=== PATIENT | female | born 1965 | race African-American/Black ===

== ENCOUNTER 2016-10-08 09:37 | Emergency (ER) | payer OTHER ==
--- NOTE | ~2016-10-08 | CR63 ---
[facility] A Service of [facility] RADIOLOGY TEXT RESULTS PATIENT: CLARA LOOMIS LOCATION: [facility] : 63 UNIT #: [id number] AGE: [address]: Melody Macias APRN SEX: F ORDER DR: [id number] [facility] [address] [place], [place] [address] [id number] E MR#: [id number] Acc #: [id number] NAME: CLARA LOOMIS. : 1965 SEX: F STUDY DATE/TIME: 10/08/2016 9:43 UNIT: [facility] ROOM: STUDY DESCRIPTION: CR Chest 2 View Attending Physician: Melody Macias A.P.R.N. Ordering Physician: Ed Dany Barahona M.D. Primary Care Physician: Scott Maldonado M.D. MEDICAL IMAGING REPORT This report is preliminary unless electronic signature is present EXAM 2 views of the chest COMPARISON None INDICATION 51-year-old female with cough, chest congestion and dyspnea for 2 days. FINDINGS Cardiomediastinal silhouette is normal. No evidence of pneumothorax, pleural effusion or acute airspace disease. There are prominent breast shadows on frontal view. Mild multilevel anterior osteophyte formation of the thoracic spine seen primarily at the mid aspect. IMPRESSION No acute radiographic abnormality of the chest. Dictated by... Cordell Burns M.D. THIS IS AN ELECTRONICALLY VERIFIED REPORT Cordell Burns M.D. at 10/11/2016 9:19 AM MISTY/william TD: 10/08/2016 21:51 JOB #: [id number] MEDICAL IMAGING REPORT Page 1 of 1 COPY
[2016-10-08 09:53] LABS: INFLUENZA A POS (NEG); INFLUENZA B NEG (NEG)
[2016-11-08] MEDS ORDERED: ZESTORETIC 20-1 EACH PO (11:35)
[2016-11-08] MEDS ORDERED: ASPIRIN81 M2 PO (11:36)
[2016-11-08] MEDS ORDERED: BAYER BACK & B1 EACH PO (11:36)
[2016-11-08] MEDS ORDERED: NEXIUM20 MG PO (11:36)
[2016-11-08] MEDS ORDERED: ATORVASTATIN CA10 MG PO (11:36)
[2016-11-08] MEDS ORDERED: IBUPROFEN800 MG PO (11:37)
== END 2016-10-08 11:00 | disposition home or self-care (01) ==
LOC: CED 09:37
PROVIDERS: Nurse Practitioner
DX: J20.9 Acute bronchitis, unspecified (principal); J10.1 Influenza due to other identified influenza virus with other respiratory manifestations; I10 Essential (primary) hypertension; Z90.710 Acquired absence of both cervix and uterus
CPT/HCPCS: 71020; 87804; 94640; 99284

== ENCOUNTER 2016-10-21 07:27 | Emergency (ER) | payer OTHER ==
--- NOTE | ~2016-10-21 | CT2 ---
[facility] A Service of [facility] RADIOLOGY TEXT RESULTS PATIENT: CLARA LOOMIS LOCATION: [facility] : 63 UNIT #: [id number] AGE: [address]: Isrrael Vázquez MD SEX: F ORDER DR: [id number] [facility] [address] [place], [place] [address] [id number] E MR#: [id number] Acc #: [id number] NAME: CLARA LOOMIS : 1965 SEX: F STUDY DATE/TIME: 10/21/2016 8:24 UNIT: [facility] ROOM: STUDY DESCRIPTION: CT Abd and Pelv W Cont Attending Physician: Isrrael Vázquez M.D. Ordering Physician: Isrrael Vázquez M.D. Primary Care Physician: Scott Maldonado M.D. MEDICAL IMAGING REPORT This report is preliminary unless electronic signature is present EXAM CT abdomen and pelvis 10/21/2016. HISTORY Right upper quadrant pain, vomiting since 10/20/2016. TECHNIQUE CT abdomen and pelvis performed with intravenous administration of 90 mL Isovue-370. This CT exam was performed with one or more of the following radiation dose reduction techniques: automatic exposure control, adjustment of mA and/or kV according to patient size, and iterative reconstruction. No comparisons. FINDINGS Enteric contrast not administered. The lungs show dependent atelectasis. Heart upper limits of normal in size. Diffuse fatty infiltration of the liver. No suspicious focal abnormality. Small radiolucent gallstones in gallbladder. There is no gallbladder dilatation. Slight haziness of the gallbladder wall is favored to be motion artifact. Similar appearance to the adjacent hepatic and renal margins. No pericholecystic fluid. The spleen, pancreas, adrenal glands, kidneys are unremarkable. CT Pelvis: No inguinal adenopathy. The urinary bladder is unremarkable. Status post hysterectomy. No suspicious adnexal findings. No pelvic or retroperitoneal adenopathy. The distal esophagus, stomach, small bowel unremarkable. Appendix normal. Colon shows uncomplicated right and left colon diverticulosis. Scattered atherosclerotic arterial calcifications. No aneurysm. Bony structures show no acute abnormality. IMPRESSION [facility] A Service of [facility] RADIOLOGY TEXT RESULTS PATIENT: CLARA LOOMIS LOCATION: [facility] : 63 UNIT #: [id number] AGE: [address]: Isrrael Vázquez MD SEX: F ORDER DR: 1. No definite acute abnormalities seen in the abdomen or pelvis. There are radiolucent gallstones present. There is no gallbladder dilatation or pericholecystic fluid and no biliary ductal dilatation. Slight haziness of the gallbladder wall is favored to be a motion artifact. Similar appearance of the immediately adjacent liver and renal margins. Suspicion for gallbladder inflammation is very low. Please correlate with clinical exam and laboratory data. If additional gallbladder imaging would assist in management ultrasound could be considered. 2. Heart upper limits of normal in size to borderline enlarged. 3. Pancreas, kidneys, appendix normal. 4. Uncomplicated colonic diverticulosis. 5. Scattered atherosclerotic arterial calcifications. No aneurysm. Dictated by... Scott Ochoa M.D. THIS IS AN ELECTRONICALLY VERIFIED REPORT Scott Ochoa M.D. at 10/21/2016 4:49 PM Mabel TD: 10/21/2016 10:03 JOB #: [id number] MEDICAL IMAGING REPORT Page 1 of 1 COPY
--- NOTE | ~2016-10-21 | US67 ---
[facility] A Service of [facility] RADIOLOGY TEXT RESULTS PATIENT: CLARA LOOMIS LOCATION: [facility] : 63 UNIT #: [id number] AGE: [address]: Isrrael Vázquez MD SEX: F ORDER DR: [id number] [facility] [address] [place], [place] [address] [id number] E MR#: [id number] Acc #: [id number] NAME: CLARA LOOMIS. : 1965 SEX: F STUDY DATE/TIME: 10/21/2016 10:01 UNIT: [facility] ROOM: STUDY DESCRIPTION: Gallbladder Attending Physician: Isrrael Vázquez M.D. Ordering Physician: Isrrael Vázquez M.D. Primary Care Physician: Scott Maldonado M.D. MEDICAL IMAGING REPORT This report is preliminary unless electronic signature is present EXAM Gallbladder ultrasound, 10/21/2016 HISTORY Right upper quadrant abdominal pain, nausea and vomiting for [address] scan of the abdomen and pelvis performed earlier today demonstrated cholelithiasis and questionable gallbladder wall thickening. Gallbladder ultrasound was recommended for further evaluation. FINDINGS The liver demonstrates an increase in echotexture with attenuation of the ultrasound beam characteristic of fatty infiltration. No cystic or solid mass lesions were seen in the liver. The intra and extrahepatic bile ducts are not dilated. The gallbladder contains multiple shadowing gallstones but there is no evidence of gallbladder wall thickening or pericholecystic fluid. The common duct measures 3.0 mm. The pancreas and right kidney are normal. IMPRESSION 1. Cholelithiasis. No evidence of gallbladder wall thickening or pericholecystic fluid. No intra or extrahepatic biliary ductal dilatation. 2. Fatty infiltration of the liver. Dictated by... Hubert Lei M.D. THIS IS AN ELECTRONICALLY VERIFIED REPORT Hubert Lei M.D. at 10/21/2016 4:42 PM MEHRDAD/edith TD: 10/21/2016 10:51 [facility] A Service of [facility] RADIOLOGY TEXT RESULTS PATIENT: CLARA LOOMIS LOCATION: [facility] : 63 UNIT #: [id number] AGE: [address]: Isrrael Vázquez MD SEX: F ORDER DR: JOSE ANGEL #: [id number] MEDICAL IMAGING REPORT Page 1 of 1 COPY
[2016-10-21 07:21] LABS: BASOPHIL% 0.3 % (0-2.5); DIFF IND YES; HEMATOCRIT 40.2 % (35.0-45.0); HEMOGLOBIN 13.1 gm/dL (12.0-16.0); LYMPHOCYTE# 1.3 X10e3 (1.0-3.5); LYMPHOCYTE% 8.4 % (17.0-45.0); MEAN CELL VOLUME 89.7 FL (83-96); MEAN CORPUSCULAR HEMOGLOBIN 29.2 PG (28-34); MEAN CORPUSCULAR HGB CONC 32.6 g/dL (30-36); MEAN PLATELET VOLUME 9.4 FL (6.5-11.5); MONOCYTE# 0.4 X10e3 (0-1.0); MONOCYTE% 2.5 % (3.0-12.0); NEUTROPHIL# 13.8 X10e3 (1.5-7.1); NEUTROPHIL% 88.8 % (40-75); PLATELET COUNT 232 X10e3 (140-420); RED BLOOD COUNT 4.48 X10e (3.90-5.30); RED CELL DISTRIBUTION WIDTH 12.8 % (11.0-15.5); WHITE BLOOD COUNT 15.5 X10e3 (4.0-10.5)
[2016-10-21 07:47] LABS: ALBUMIN SERUM 4.3 g/dL (3.5-5.0); BILIRUBIN, DIRECT 0.1 mg/dL (0.0-0.2); BILIRUBIN,INDIRECT 0.5 mg/dL (0.0-0.9); BILIRUBIN,TOTAL 0.6 mg/dL (0.2-2.0); CALCIUM SERUM 9.3 mg/dL (8.4-10.2); CREATININE SERUM 0.6 mg/dL (0.6-1.4); GLOM FILT RATE Estimated 121.5 mL/min (>60); POTASSIUM 3.2 mmol/L (3.5-5.1); PROTEIN TOTAL SERUM 7.9 g/dL (6.0-8.3)
[2016-10-21 07:53] LABS: PLATELET ESTIMATE NORMAL (NORMAL)
[2016-10-21 07:58] LABS: URINE SOURCE CLEAN CATCH
[2016-10-21 08:02] LABS: URINE APPEARANCE CLEAR; URINE BILIRUBIN NEG (NEG); URINE BLOOD TRACE (NEG); URINE COLOR YELLOW; URINE GLUCOSE NEG (NEG); URINE KETONE NEG (NEG); URINE LEUKOCYTE ESTERASE NEG (NEG); URINE NITRATE NEG (NEG); URINE PH 7.5 (5-8); URINE PROTEIN NEG (NEG); URINE SPECIFIC GRAVITY 1.021 (1.003-1.035); URINE UROBILINOGEN 0.2 MG/DL (NEG)
[2016-10-21 08:04] LABS: URINE BACTERIA AUWI NEG (NEGATIVE); URINE SQUAMOUS EPITHELIAL CELL OCC /[HPF]; UWBCS1 AUWI 0-2 (0-5)
[2016-10-21 08:17] LABS: CULTURE INDICATED? NO; URBCS1 AUWI 0-2 /[HPF] (0-2)
[2016-11-08] MEDS ORDERED: ZESTORETIC 20-1 EACH PO (11:35)
[2016-11-08] MEDS ORDERED: NEXIUM20 MG PO (11:36)
[2016-11-08] MEDS ORDERED: ASPIRIN81 M2 PO (11:36)
[2016-11-08] MEDS ORDERED: ATORVASTATIN CA10 MG PO (11:36)
[2016-11-08] MEDS ORDERED: BAYER BACK & B1 EACH PO (11:36)
[2016-11-08] MEDS ORDERED: IBUPROFEN800 MG PO (11:37)
== END 2016-10-21 11:26 | disposition home or self-care (01) ==
LOC: CED 07:27
PROVIDERS: Emergency Medicine
DX: K29.70 Gastritis, unspecified, without bleeding (principal); I10 Essential (primary) hypertension
CPT/HCPCS: 36415; 74177; 76705; 80048; 80076; 81003; 82150; 83690; 84703; 85025; 96361; 96374; 96375; 96376; 99284; J1170; J2405; Q9967

== ENCOUNTER → 2016-11-08 | Outpatient (CLI) | payer OTHER ==
[~2016-11-08] MED LIST: ASPIRIN81 M2 PO; ATORVASTATIN CA10 MG PO; BAYER BACK & B1 EACH PO; IBUPROFEN800 MG PO; NEXIUM20 MG PO; ZESTORETIC 20-1 EACH PO
--- NOTE | ~2016-11-08 | EKG ---
PATIENT: CLARA LOOMIS UNIT #: [id number] Ventricular Rate: 69 BPM Atrial Rate: 69 BPM P-R Interval: 174 ms QRS Duration: 84 ms Q-T Interval: 394 ms QTC Calculation(Bezet): 422 ms P Carlton: 58 degrees Calculated R Carlton: 27 degrees Calculated T Carlton: 27 degrees Diagnosis Line: Normal sinus rhythm Diagnosis Line: Normal ECG Diagnosis Line: No previous ECGs available Diagnosis Line: Confirmed by DENNIS CORDON MD ([id number]) on Diagnosis Line: 11/08/2016 10:27:14 PM INTERPRETING MD: HEATHER
== END | disposition home or self-care (01) ==
LOC: CAMB 09:44
DX: Z01.818 Encounter for other preprocedural examination (principal); K80.20 Calculus of gallbladder without cholecystitis without obstruction
CPT/HCPCS: 36415; 80048; 85027; 93005

== ENCOUNTER → 2016-11-14 | Day surgery (SDC) | payer OTHER ==
[2016-11-08 11:22] LABS: HEMATOCRIT 40.1 % (35.0-45.0); HEMOGLOBIN 13.4 gm/dL (12.0-16.0); MEAN CELL VOLUME 89.2 FL (83-96); MEAN CORPUSCULAR HEMOGLOBIN 29.8 PG (28-34); MEAN CORPUSCULAR HGB CONC 33.4 g/dL (30-36); MEAN PLATELET VOLUME 8.8 FL (6.5-11.5); RED BLOOD COUNT 4.5 X10e (3.90-5.30); RED CELL DISTRIBUTION WIDTH 12.8 % (11.0-15.5)
[2016-11-08 12:09] LABS: BUN/CREATININE RATIO 11.66; CALCIUM SERUM 9.7 mg/dL (8.4-10.2); CREATININE SERUM 0.6 mg/dL (0.6-1.4); GLOM FILT RATE Estimated 121.5 mL/min (>60); POTASSIUM 4.2 mmol/L (3.5-5.1)
--- NOTE | ~2016-11-14 | OR ---
Unit #: [id number] #: [id number] Patient: CLARA LOOMIS [id number] [address] [address] [id number] O MR#: [id number] NAME: CLARA LOOMIS ROOM: Date of Procedure: 11/14/2016 Admission Date: 11/14/2016 Surgeon: Scott Sellers M.D. : 1965 Attending Physician: Scott Sellers M.D. Primary Care Physician: Scott Maldonado M.D. OPERATIVE REPORT PREOPERATIVE DIAGNOSIS Chronic cholecystitis. POSTOPERATIVE DIAGNOSIS Acute cholecystitis. PROCEDURE PERFORMED Laparoscopic cholecystectomy. BAKER BENCH Brittani. ANESTHESIA General endotracheal anesthesia. ESTIMATED BLOOD LOSS Minimal. IV FLUIDS 800 crystalloid. COMPLICATIONS None. INDICATIONS FOR PROCEDURE The patient is a 51-year-old with pain and findings consistent with acute cholecystitis. DESCRIPTION OF PROCEDURE The patient was taken to the operating theater and placed in a supine position. General anesthesia was induced. The abdomen was prepped and draped. A 5-mm Optiview trocar was placed in the right upper quadrant without difficulty. The abdomen was insufflated to 15 mmHg with CO2. Under direct vision, I placed a subxiphoid 10 mm, right lateral 5 mm, and umbilical 5 mm. General inspection of the abdomen revealed acute cholecystitis with distended and swollen gallbladder. This was retracted up over the liver. We dissected the neck of the gallbladder and identified the cystic duct. Its junction with the gallbladder was confirmed. It was thus skeletonized, doubly hemoclipped, and divided. The cystic artery laid immediately posterior. This was skeletonized, doubly hemoclipped, and divided. The gallbladder was removed from the gallbladder bed with Bovie electrocautery and delivered via the subxiphoid Unit #: [id number] #: [id number] Patient: CLARA LOOMIS port. Hemostasis was adequate. I removed the ports under direct vision. I closed the fascia with 0 Vicryl and skin with 4-0 Vicryl. The patient tolerated the procedure well and sent to recovery room in good condition. Dictated by... Miguel Pinon/ozzie TD: 11/14/2016 15:20 JOB #: [id number] OPERATIVE REPORT Page 1 of 1 X Scott Sellers MD PROCEDURE OPERATIVE NOTE
== END | disposition home or self-care (01) ==
LOC: CSUR 07:05
PROVIDERS: Surgery
DX: K80.10 Calculus of gallbladder with chronic cholecystitis without obstruction (principal); I10 Essential (primary) hypertension; E78.5 Hyperlipidemia, unspecified; K21.9 Gastro-esophageal reflux disease without esophagitis; G89.29 Other chronic pain; M54.9 Dorsalgia, unspecified; M17.12 Unilateral primary osteoarthritis, left knee; Z79.1 Long term (current) use of non-steroidal anti-inflammatories (NSAID); Z79.82 Long term (current) use of aspirin; Z79.899 Other long term (current) drug therapy; Z90.710 Acquired absence of both cervix and uterus; Z98.51 Tubal ligation status
CPT/HCPCS: 36415; 80048; 85027; 88304; J0131; J0330; J0690; J1644; J2250; J2405; J3010

== ENCOUNTER 2017-02-07 14:38 | Emergency (ER) | payer OTHER ==
[~2017-02-07] VITALS: Ht 160 cm; Wt 90.7 kg
--- NOTE | ~2017-02-07 | CR117 ---
[facility] A Service of [facility] RADIOLOGY TEXT RESULTS PATIENT: CLARA LOOMIS LOCATION: [facility] : 63 UNIT #: [id number] AGE: [address]: Bela Garay SEX: F ORDER DR: [id number] [facility] [address] [place], [place] [address] [id number] E MR#: [id number] Acc #: [id number] NAME: CLARA LOOMIS. : 1965 SEX: F STUDY DATE/TIME: 02/07/2017 15:21 UNIT: [facility] ROOM: STUDY DESCRIPTION: CR Finger 2 View Thumb Rt Attending Physician: Bela Garay P.A.-C. Ordering Physician: Bela Garay P.A.-C. Primary Care Physician: Scott Maldonado M.D. MEDICAL IMAGING REPORT This report is preliminary unless electronic signature is present EXAM Right thumb HISTORY Posterior pain after injuring the thumb 1 week ago. TECHNIQUE 3 views were obtained. FINDINGS Three views right thumb show no evidence of fracture, dislocation or radiodense foreign body. No acute bony abnormalities are seen. Dictated by... Javed Carson M.D. THIS IS AN ELECTRONICALLY VERIFIED REPORT Javed Carson M.D. at 02/08/2017 6:59 AM GIOVANNA/mich TD: 02/07/2017 22:48 JOB #: [id number] MEDICAL IMAGING REPORT Page 1 of 1 COPY
--- NOTE | ~2017-02-07 | DHC ---
[facility] A Service of [facility] PROGRESS NOTE Patient: CLARA LOOMIS Date of : [birth year] Location: [facility] Room: DATE: 02/27/17 Discussion: This note serves to close this chart as of 03/16/2017 due to the closure of this office. A letter of referral sources will be sent to the patient. No further prescriptions or psychiatric services will be provided by this office after 03/16/2017. Plan: X Augustin Don MD <ELECTRONICALLY SIGNED> 02/27/17 1706 X PHYSICIAN CONTACT NOTE
== END 2017-02-07 15:58 | disposition home or self-care (01) ==
LOC: CED 14:38 → CFTX 14:38
DX: S63.601A Unspecified sprain of right thumb, initial encounter (principal); I10 Essential (primary) hypertension; I25.10 Atherosclerotic heart disease of native coronary artery without angina pectoris; Z90.49 Acquired absence of other specified parts of digestive tract; Z79.899 Other long term (current) drug therapy; Z79.82 Long term (current) use of aspirin; X58.XXXA Exposure to other specified factors, initial encounter; Y92.89 Other specified places as the place of occurrence of the external cause
CPT/HCPCS: 29125; 73140; 96372; 99283; J1885